=== PATIENT | female | born 1995 ===

== ENCOUNTER 2016-10-05 22:59 | Emergency (ER) | payer OTHER ==
[~2016-10-05] VITALS: Ht 160 cm; Wt 62.2 kg
[2016-10-05 23:02] VITALS: Ht 160 cm; Wt 62.2 kg
[2016-10-06] MEDS ORDERED: METHYLPREDNISOLONE 125 MG INJ IM STA (00:54)
[2016-10-06] MEDS ORDERED: DIPHENHYDRAMINE 50 MG INJ IM ONE (01:00)
[2016-10-06] MEDS ORDERED: PRED20TA PO (01:00)
[2016-10-06] MEDS ORDERED: BEN50 PO (01:00)
[2016-10-06 02:40] VITALS: BP 117/71; PULSE 79; RESP 18; TEMP 98.9
--- NOTE | 2016-10-06 02:46 | ERD ---
ER Documentation Chief Complaint Date/Time DATE: 10/06/16 TIME: 02:44 Chief Complaint scaterred body rashes HPI This is a 21-year-old female presenting to the emergency department complaining of an itchy rash for the past couple days. Patient states that it was worse and raised but now it is just scattered. Patient denies any shortness of breath or wheezing. She denies shortness of breath or chest pain. Patient denies any recent traveling, new creams or medicines that she tried to ROS All systems reviewed and are negative except as per history of present illness. Medications Home Meds Active Scripts Prednisone* (Prednisone*) 20 Mg Tab, 40 MG PO DAILY for 4 Days, TAB Prov:MOISES HALEY PA-C 10/06/16 Diphenhydramine Hcl* (Benadryl*) 50 Mg Cap, 50 MG PO Q6H Y for ITCHING/RASH, # 30 CAP Prov:MOISES HALEY PA-C 10/06/16 Allergies Allergies: Coded Allergies: No Known Allergy (Unverified , 10/05/16) PMhx/Soc Medical and Surgical Hx: pt denies Medical Hx, pt denies Surgical Hx History of Surgery: No Anesthesia Reaction: No Hx Neurological Disorder: No Hx Respiratory Disorders: No Hx Cardiac Disorders: No Hx Psychiatric Problems: No Hx Miscellaneous Medical Probl: No Hx Alcohol Use: Yes (SOCIALLY 1X/ MO) Hx Substance Use: Yes (OCCASIONAL MARIJUANA) Hx Tobacco Use: No Smoking Status: Never smoker Physical Exam Vitals Vital Signs Date Time Temp Pulse Resp B/P Pulse Ox O2 Delivery O2 Flow Rate FiO2 10/06/16 02:40 98.9 79 18 117/71 97 Room Air 10/05/16 23:02 97.7 104 20 121/81 98 Physical Exam General: WD/WN, in no apparent distress, non-toxic appearing HENT: NC/AT Eyes: Conjunctiva normal Neck: Supple Pulm: Clear to auscultation, normal labored breathing; no wheezing/rales/ rhonchi heard CV: Good capillary refill GI: Non-distended, no guarding Back: No masses Ext: No clubbing, cyanosis, or edema Neuro: Moves on all fours Skin: Erythematous raised patches throughout body Normal turgor, color, and temperature. No ulcerations or rashes noted. Psych: Normal mood Results 24 hrs Current Medications Medications (Trade) Dose Ordered Sig/Trudy Route PRN Reason Start Time Stop Time Status Last Admin Dose Admin Methylprednisolone Sodium Succinate (Solu-Medrol) 125 mg ONCE STAT IM 10/06/16 00:54 10/06/16 00:55 DC 10/06/16 01:54 Diphenhydramine HCl (Benadryl) 50 mg ONCE ONCE IM 10/06/16 01:00 10/06/16 01:01 DC 10/06/16 01:53 Procedures/MDM This is a 21-year-old female presenting to the emergency room with a rash most consistent with hives allergic dermatitis. Patient's airways were intact, she is breathing well on room air. Patient's lungs are clear to auscultation bilaterally. Oropharynx is clear. I have a low suspicion for anaphylaxis. Low suspicion for cellulitis. In the ED patient was given Solu-Medrol and Benadryl. Patient is stable for discharge to follow-up with the adjuster electrical contacts. Prescription for prednisone for the next 4 days and Benadryl was provided. Discussed return the ER for any worsening signs or symptoms. Patient understands and agrees with plan Departure Diagnosis: Primary Impression: Hives Condition: Stable Patient Instructions: Allergic Reaction, Other (General), Hives Referrals: [facility] Additional Instructions: FOLLOW UP WITH YOUR PRIMARY CARE PHYSICIAN TOMORROW.Return to this facility if you are not improving as expected. Take all medicines as directed. Return to this facility if you are not improving as expected. You have been given a medicine which may cause drowsiness.DO NOT DRIVE OR OPERATE DANGEROUS MACHINERY while taking this medicine! MOISES HALEY PA-C Oct 06, 2016 02:45
== END 2016-10-06 02:41 | disposition home or self-care (01) ==
LOC: FTE 22:59
DX: L50.9 Urticaria, unspecified (principal)
CPT/HCPCS: 96372; J1200; J2930; Z7502